=== PATIENT | female | born 1940 | race Caucasian/White ===

== ENCOUNTER → 2020-12-10 | Day surgery (SDC) | payer MEDICARE, MEDICAID ==
[~2020-12-10] VITALS: Ht 167.6 cm; Wt 66.2 kg
[~2020-12-10] MED LIST: ACETYLCHOLINE CHLORIDE INTRAOCULAR SOLUTION 1:100 ELECTROLYTE DILUENT IO ONE; BACL-141 PO; BALANCED SALT IRRIG SOLN 15ML ONE; BALANCED SALT IRRIG SOLN COMB1 500ML OP NR; BUPIVACAINE HCL/PF 0.75% (7.5MG/ML) 10ML ONE; CALC-586 PO; CHOL500010; DOCU-138 PO; FOLI-43 PO; GABA-532 PO; HYALURONATE SODIUM 10 MG/ML 0.55ML SYRINGE IO ONE; LACTATED RINGERS 1,000 ML IV SCH; LIDOCAINE HCL 2%/EPINEPHRINE 1:100,000 20 ML VIAL INFIL ONE; METHYLPREDNISOLONE SOD SUCC 40 MG/ML VIAL ONE; METO-539 PO; PHENYLEPHRINE 2.5% OPHTH 15 DROP/ML BOTTLE RIGHTEYE ONE; PHENYLEPHRINE HCL 2.5% OPHTH DROPS 2ML ONE; PROPOFOL 200MG/20ML VIAL IV ONE; SODI1TAB3 PO; TETRACAINE 0.5% OPHTH DROPS 4ML ONE; TOBRAMYCIN/DEXAMETH 0.1/0.3% OPHTH SUSP 2.5ML ONE; TOPUD PO; TROPICAMIDE 1% OPHTH DROPS 15ML ONE; TROPICAMIDE 1% OPHTH DROPS 15ML RIGHTEYE ONE
== END | disposition home or self-care (01) ==
LOC: OR 06:43
PROVIDERS: ATTEND Ophthalmology
DX: H25.89 Other age-related cataract (principal); I10 Essential (primary) hypertension; E83.51 Hypocalcemia; E87.1 Hypo-osmolality and hyponatremia; G62.9 Polyneuropathy, unspecified; F41.9 Anxiety disorder, unspecified; Z87.440 Personal history of urinary (tract) infections; Z79.899 Other long term (current) drug therapy; Z98.890 Other specified postprocedural states
CPT/HCPCS: 66984; 93005; J2704; J3490; V2632; J2920

== ENCOUNTER → 2021-02-11 | Day surgery (SDC) | payer MEDICARE, MEDICAID ==
[~2021-02-11] VITALS: Ht 167.6 cm; Wt 66.2 kg
[~2021-02-11] MED LIST changes: -BALANCED SALT IRRIG SOLN COMB1 500ML OP NR; +BALANCED SALT IRRIG SOLN COMB1 500ML OP SCH; -METHYLPREDNISOLONE SOD SUCC 40 MG/ML VIAL ONE; +PHENYLEPHRINE 2.5% OPHTH 15 DROP/ML BOTTLE LEFTEYE ONE; -PHENYLEPHRINE 2.5% OPHTH 15 DROP/ML BOTTLE RIGHTEYE ONE; +PILOCARPINE HCL 2% OPHTH DROPS 15ML ONE; -TOBRAMYCIN/DEXAMETH 0.1/0.3% OPHTH SUSP 2.5ML ONE; +TROPICAMIDE 1% OPHTH DROPS 15ML LEFTEYE ONE; -TROPICAMIDE 1% OPHTH DROPS 15ML RIGHTEYE ONE
== END | disposition home or self-care (01) ==
LOC: OR 08:42
PROVIDERS: ATTEND Ophthalmology
DX: H25.89 Other age-related cataract (principal); I10 Essential (primary) hypertension; D64.9 Anemia, unspecified; E83.51 Hypocalcemia; G62.9 Polyneuropathy, unspecified; Z98.41 Cataract extraction status, right eye; Z79.899 Other long term (current) drug therapy; Z98.890 Other specified postprocedural states
CPT/HCPCS: 66984; J2704; J3490; V2632